=== PATIENT | female | born 1985 | race Caucasian/White ===

== ENCOUNTER 2023-09-27 12:53 | Outpatient (OUT) | payer BC, SELFPAY ==
--- NOTE | 2023-09-27 13:09 | MM_ITS ---
Patient Name: LAILA SANHCES MR#: [id number] : 1985 Exam Date: 09/27/2023 Ordering Doctor: DR COLBY BLOOM [facility] RADIOLOGY REPORT PROCEDURE: MM TOMOSYNTHESIS SCREENING BI COMPARISON: [facility] MAMM DIAGNOSTIC 3D COMPA CAD, 03/14/2022. INDICATIONS: Screening Calculator Name NCI Breast Cancer Risk Assessment Tool 5 Year Breast Cancer Risk 0.50% Lifetime Breast Cancer Risk 11.20% Personal Breast Cancer No Personal Ovarian Cancer No Treatments None Family Cancers Grandmother-maternal with lymphoma cancer at age 70. LOCATION: [facility] BREAST COMPOSITION: The breasts are extremely dense, which lowers the sensitivity of mammography. FINDINGS: DIAGNOSTIC CATEGORY 1--NEGATIVE. NO CHANGE FROM COMPARISON ASSESSMENT. Scattered benign-appearing lymph nodes are present. RIGHT BREAST: No significant suspicious finding. LEFT BREAST: No significant suspicious finding. RECOMMENDATIONS: CLINICAL EVALUATION. PLEASE NOTE: A NORMAL MAMMOGRAM DOES NOT EXCLUDE THE POSSIBILITY OF BREAST CANCER. A CLINICALLY SUSPICIOUS PALPABLE LUMP SHOULD BE BIOPSIED. Dictated by: Jose Harrison MD on 09/27/2023 at 14:18 Approved by: Jose Harrison MD on 09/27/2023 at 14:20
== END 2023-09-27 12:54 | disposition home or self-care (01) ==
LOC: MAMMO 12:58
PROVIDERS: PCP Nurse Practitioner; Visit Provider Midwife
DX: Z12.31 Encounter for screening mammogram for malignant neoplasm of breast (principal); Z80.7 Family history of other malignant neoplasms of lymphoid, hematopoietic and related tissues
CPT/HCPCS: 77063; 77067